=== PATIENT | female | born 1980 | race Caucasian/White ===

== ENCOUNTER 2017-11-18 19:17 | Outpatient (CLI) | payer OTHER, SELFPAY ==
--- NOTE | 2017-11-18 19:54 | DI.US.S_ITS ---
PROCEDURE: US OB LIMITED INDICATIONS: 28wks bleeding, r/o placental abrubtion TECHNIQUE: Real-time scanning was performed of the fetus, with image documentation. COMPARISON: None. FINDINGS: A single living intrauterine gestation is present. Presentation: Cephalic Placenta: Placental position is posterior without evidence of previa. However, there is a focal area of hypoechogenicity identified along the right lateral margin of the placenta that measures 5.4 x 2.0 x 8.1 cm. Adjacent vessels are present. No vascularity is evident at the site of this area of decreased echogenicity. Amniotic fluid index: 13.3 cm, which is normal. heart rate: 137 beats per minute. Maternal cervical canal: 3.1 cm in length without evidence of funneling. IMPRESSION: 1. Single intrauterine . 2. Area of decreased echogenicity involving the right lateral margin of the placenta the may represent a venous munguia. However, the possibility of a placental abruption is difficult to exclude. Followup imaging would be of value. 2. The cervix is closed. Dictated by: Oscar Mccarthy M.D. on 11/18/2017 at 20:50 Approved by: Oscar Mccarthy M.D. on 11/18/2017 at 20:53
--- NOTE | 2017-11-18 21:06 | PM.OBTRLD ---
Visit Information Visit Information Date of evaluation: 11/18/17 Primary OB Provider: Adelina Cummings On-call OB Provider: Raya Hernandez Reason for Evaluation: Yes other Comments/Additional reasons for admission: Vaginal bleeding at 28 weeks 3 days Vital Signs Vital Signs: Blood pressure 160/81, P88 PFSH Medical History Chronic hypertension in obstetric context in third trimester (Acute) Gestational diabetes mellitus (GDM) affecting second (Acute) Review of Systems Review of Systems Patient has back pain that has been increasing over the last week. She denies any fevers. She had a small amount of dark blood when she wipes at 5:45 p.m. today at work. She is a patient of at the [facility]. She was advised to come in for evaluation here. All systems reviewed & are unremarkable except as noted in HPI and below Exam Narrative Exam Narrative: Patient's abdomen is soft, nontender. OB/External & Speculum: external exam normal and other (The vagina has no evidence of blood. The discharge is white. Cervix appears normal.) Objective Imaging US - abdomen: Radiologist's impression: Posterior placenta with evidence of small abruption at the edge that appears to be old in nature Evaluation Evaluation Baseline heart rate: 140 Variability: Moderate (11-25) monitor accelerations: Present monitor decelerations: Absent Category of Tracing: I Cervical dilation (cm): 0 Cervical effacement (%): 0 station: -3 Diagnosis, Plan/Disposition Final Diagnosis (1) Placental abruption in third trimester: Current Visit: Yes Status: Acute Plan/Disposition Plan: Evidence of small old abruption at the edge of the placenta. There does not appear to be any concerns for the baby at this time. Patient has no active bleeding. No evidence of labor. Patient was discharged home to follow up with her primary OB provider. She is to rest and not have intercourse. Return if she has heavy bleeding or increasing abdominal pain. OB Disposition: home
== END 2017-11-18 21:00 | disposition home or self-care (01) ==
LOC: OB 11-20 11:56
PROVIDERS: PCP Nurse Practitioner Family; Visit Provider Specialist
DX: O16.3 Unspecified maternal hypertension, third trimester (principal); O24.419 Gestational diabetes mellitus in pregnancy, unspecified control; O46.93 Antepartum hemorrhage, unspecified, third trimester; Z3A.28 28 weeks gestation of pregnancy
CPT/HCPCS: 59025; 59050; 76815; G0378; G0379

== ENCOUNTER 2019-06-28 11:57 | Day surgery (SDC) | payer OTHER, SELFPAY ==
[2019-06-17 09:01] VITALS: BMI 37.0
[2019-06-28] VITALS (10 sets, daily range): BP systolic 143–182; BP diastolic 92–112; PULSE 62–86; RESP 11–20; TEMP 36.4–37; O2SAT 94–100; BMI 37.0
--- NOTE | 2019-06-28 | PATH_ITS ---
[facility] Accession Number: [id number] . 01 Material submitted: . gallbladder - GALLBLADDER AND CONTENTS . 01 Clinical history: . LAP ELVIN . 02 Diagnosis: Gallbladder and Contents, Cholecystectomy: Cholelithiasis. One benign lymph node. No evidence of neoplasm. MRV 06/30/2019 1120 Local . 02 Electronically signed: . Antonio Cantu MD, PhD, Pathologist NPI- [id number] . 01 Gross description: . Received in formalin, labeled gallbladder + contents, is an opened gallbladder (length-7.0 cm, diameter-2.4 cm) with purple-pink smooth shiny serosa and a patent cystic duct. A 1.6 x 1.0 x 0.2 cm possible lymph node is identified. The lumen contains brown gelatinous material and multiple dark green friable calculi (2.5 x 2.0 x 0.8 cm in aggregate). The mucosa is zamora, smooth and flat. The wall is up to 0.1 cm thick. No nodules, masses or lesions are identified. Section code: (A1) cystic duct resection margin and two serial sections from the body; (A2) two longitudinal sections from the fundus; (A3) one serially sectioned lymph node. ([id number]) /MRV 06/29/2019 1102 Local . 02 Pathologist provided ICD-10: K80.70 . 02 CPT . 636760 Performed at: 01 [facility] [address] [place] [address], [place], [place] [id number] MD Feliz Alfaro MD Phone: [phone] Performed at: [address] [facility] [address] [place], [place] [id number] MD Janneth Encinas MD Phone: [phone]
[2019-06-28] MEDS: LACTATED RINGERS 1,000 ML 42 ML IV ×2 (12:22→17:05)
[2019-06-28] MEDS: CELECOXIB 200 MG CAPSULE 400 MG PO (13:11)
[2019-06-28] MEDS: SCOPOLAMINE 1 PATCH TOP (13:12)
[2019-06-28] MEDS: ACETAMINOPHEN 325 MG TABLET 975 MG PO (13:12)
[2019-06-28] MEDS: GABAPENTIN 300 MG CAPSULE PO (13:12)
--- NOTE | 2019-06-28 14:27 | PM.PREOP ---
Pre-operative Note Interval Note History & Physical reviewed/Exam performed by Physician: Yes Changes to H&P: No
[2019-06-28] MEDS: CLINDAMYCIN 900 MG/50 ML PIGGYBACK 50 MG IV (14:47)
--- NOTE | 2019-06-28 15:12 | SUR.OPER ---
Supine on padded OR bed, head on pillow, safety belt at thigh. Right aND left arm secured on padded arm oard <90 degrees abduction. Legs uncrossed. Padded footboard in place. Tape over blanket to secure lower legs.
[2019-06-28] MEDS: BUPIVACAINE 0.25% (PF) VIAL 30 ML INJ (15:16)
[2019-06-28] MEDS: LORazepam 2 MG/ML INJ 0.25 MG IV ×2 (16:35→16:45)
--- NOTE | 2019-06-28 16:43 | PM.OP.1 ---
Operative Date/Time/Diagnoses Date of procedure: 06/28/19 Time of procedure: 16:43 Pre-op diagnosis: biliary colic Post-op diagnosis: same Procedure & Clinicians Procedure: laparoscopic cholecystectomy Same procedure as scheduled: Yes Indications: biliary colic Surgeon: Benjamin Mercer Anesthesia Type: General Operative Notes Findings: chronic cholecystitis Specimen(s): other (gallbladder) Estimated Blood Loss (mL): 10 Procedure in detail: The patient was brought to the operating room placed supine on the table. Bilateral lower extremity compression devices were applied. General anesthesia was induced and they were intubated with an endotracheal tube. They received 900 mg Clindamycin prior to skin incision. A time-out was performed to ensure the correct patient procedure necessary equipment within the operating room. They were then prepped and draped in the usual sterile fashion. Infraumbilical incision was made the umbilical stalk was grasped and elevated and the fascia was sharply incised. The abdomen was entered atraumatically. A 10 mm trocar was then placed into the abdomen. Pneumoperitoneum was established. The laparoscopic camera was inserted into the abdomen inspection was made that demonstrated no evidence of injury upon entry. We then placed our working ports the 1st 5 mm port high in the epigastrium and then 2 in the right upper quadrant. The gallbladder was grasped and retracted over the liver and grasped laterally by the fundus. There was evidence of chronic cholecystitis with dense fat stranding to the gallbladder and liver. The triangle of Calot was exposed. The triangle of calot was then skeletonized using hook electrocautery and demonstrated the cystic duct clearly entering the gallbladder the cystic artery and the liver and in the background. With the critical view of safety established the cystic duct was clipped twice proximally and once distally and then sharply divided and the cystic artery was taken in the same fashion. Next the gallbladder was removed from the liver bed using electro cautery. The liver bed was then inspected for hemostasis and this was achieved. The abdomen was irrigated with sterile saline and inspection was made that showed the clips in good position. The specimen was removed using Endo-Catch. The abdomen was desufflated. The the fascia of the umbilicus was closed with 0 Vicryl in a [id number] fashion. Skin incisions were irrigated and closed with 4-0 Monocryl. The wounds were sealed with Dermabond. Patient emerged from general anesthesia was extubated and transferred to the postoperative care unit missed stable condition. The sponge and instrument count at the end of the operation was correct. Complications: none Post-operative Condition: stable Disposition: same day surgery
[2019-06-28] MEDS: fentaNYL 100 MCG/2 ML INJ IV ×4 (16:45→17:00)
[2019-06-28] MEDS: OXYCODONE IR 5 MG TABLET PO (17:20)
--- NOTE | 2019-06-28 17:46 | SUR.PHASEII ---
at bedside. Patient rates pain 4/10 now. RX for oxycodone given to . Advised of last dose of PO pain meds at 1730. Provided extra dressing supplies to family for breakthrough oozing to umbilical dressing.
--- NOTE | 2019-06-28 18:43 | SUR.PHASEII ---
Patient home with her in stable condition. All belongings returned to patient and .
== END 2019-06-28 18:44 | disposition home or self-care (01) ==
PROVIDERS: PCP Nurse Practitioner Family; Referring Provider Surgery; Visit Provider Surgery
PROC: 0FT44ZZ Resection of Gallbladder, Percutaneous Endoscopic Approach (ICD-10-PCS; CPT 47562; principal; 2019-06-28 13:45)
DX: K80.10 Calculus of gallbladder with chronic cholecystitis without obstruction (principal); I10 Essential (primary) hypertension; G43.909 Migraine, unspecified, not intractable, without status migrainosus
CPT/HCPCS: 47562; J0330; J1100; J1885; J2060; J2250; J2405; J2704; J3010

== ENCOUNTER → 2019-07-13 13:45 | Outpatient (CLI) | payer OTHER, SELFPAY ==
[2019-07-13 13:51] LABS: RBC Urine None Seen (0-5/HPF)
[2019-07-13 14:38] LABS: Appearance Urine UA CLEAR; Bilirubin Urine UA NEGATIVE (NEGATIVE); Color Urine UA YELLOW; Glucose Urine UA NEGATIVE (Negative); Ketones Urine UA NEGATIVE (NEGATIVE); Leukocyte Esterase Urine UA TRACE (NEGATIVE); Nitrite Urine UA NEGATIVE (Negative); Occult Blood Urine UA NEGATIVE (Negative); Protein Urine UA NEGATIVE (Negative); Urobilinogen Urine UA 0.2 E.U./dL (0.2)
[2019-07-13 14:45] LABS: pH Urine UA 6.5 (4.5-8.0)
[2019-07-13 14:47] LABS: Bacteria Urine Few (2-10); Culture Indicated Urine Specimen Cultured; Squamous Epithelial Cell Urine 0-1 /HPF (0-5/HPF); WBC Urine 0-1/HPF (0-5/HPF)
[2019-07-13 14:53] LABS: Add Manual Diff / Slide Review NO; Basophils Absolute Auto 0 /uL (0-100); Basophils Percent Auto 0.3 % (0-2); Eosinophils Absolute Auto 1000 /uL (0-450); Eosinophils Percent Auto 8.3 % (2-4); Hematocrit 42.9 % (36-46); Hemoglobin 14.4 g/dL (12.0-16.0); Lymphocytes Absolute Auto 3400 /uL (1100-4500); Lymphocytes Percent Auto 26.9 % (25-40); Mean Corpuscular HGB Conc 33.6 % (30-36); Mean Corpuscular Volume 86.4 fL (80-100); Monocytes Absolute Auto 700 /uL (0-900); Monocytes Percent Auto 5.3 % (3-14); Neutrophils Absolute Auto 7400 /uL (1500-7000); Neutrophils Percent Auto 59.2 % (50-75); Platelet Count 331 X10^3/uL (150-400); Red Blood Cell Count 4.97 X10^6/uL (4.0-5.2); Red Cell Distribution Width 12.8 % (11.6-14.8); White Blood Cell Count 12.6 X10^3/uL (4.5-11.0)
== END ==
PROVIDERS: Referring Provider Surgery; Visit Provider Surgery
DX: R10.9 Unspecified abdominal pain (principal)
CPT/HCPCS: 36415; 81001; 85025; 87086

== ENCOUNTER → 2021-06-03 16:56 | Outpatient (CLI) | payer OTHER, SELFPAY ==
--- NOTE | 2021-06-03 | DI.MG.S_ITS ---
BILATERAL DIGITAL SCREENING MAMMOGRAM 3D/2D WITH CAD: 06/03/2021 CLINICAL: Baseline exam. Routine screening. No prior exams were available for comparison. The tissue of both breasts is predominantly fatty. Current study was also evaluated with a Computer Aided Detection (CAD) system. No significant masses, calcifications, or other findings are seen in either breast. IMPRESSION: NEGATIVE There is no mammographic evidence of malignancy. A 1 year screening mammogram is recommended. This exam was interpreted at Station ID: [id number]. NOTE: For mammograms, a report in lay terms will be sent to the patient. Approximately 15% of breast malignancies will not be visualized mammographically. In the management of a palpable breast mass, a negative mammogram must not discourage biopsy of a clinically suspicious lesion. Electronically Signed By: Patricia pitts/cathleen:06/04/2021 10:55:00 letter sent: Normal Exam ACR BI-RADS Category 1: Negative [id number]
== END ==
PROVIDERS: PCP Nurse Practitioner Family; Referring Provider Internal Medicine Hematology; Visit Provider Internal Medicine Hematology
DX: Z12.31 Encounter for screening mammogram for malignant neoplasm of breast (principal)
CPT/HCPCS: 77063; 77067